=== PATIENT | female | born 1965 | race Caucasian/White ===

== ENCOUNTER 2018-06-10 09:48 | Day surgery (SDC) | payer OTHER ==
[2018-06-07 17:46] VITALS: Ht 152.4 cm; Wt 68.2 kg
[~2018-06-10] VITALS: Ht 152.4 cm; Wt 68.2 kg
[2018-06-10] VITALS (15 sets, daily range): BP systolic 108–125; BP diastolic 52–75; PULSE 76–98; RESP 14–22
[~2018-06-10 09:48] MED LIST: CEFAZOLIN 2 GM/50 ML (PMX) 50 ML IVPB SCH; LIDOCAINE 2% (SDV) 5 ML INJ ONE; SOD CHLORIDE 0.9% 1,000 ML IV SCH
--- NOTE | 2018-06-10 11:09 | PREAC ---
Date/Time of Note Date/Time of Note DATE: 06/10/18 TIME: 11:08 Anesthesia Eval and Record Evaluation Time Pre-Procedure Interview DATE: 06/10/18 TIME: 11:08 Age 52 Sex female NPO: 8 hrs Preoperative diagnosis cholelithiasis Planned procedure laparoscopic cholecystectomy Past Medical History Past Medical History: None Surgery & Anesthesia Issues No known issue Meds Anticoagulation: No Beta Walter within 24 hr: No Reason Beta Walter not given: Pt. not on B-Walter No Active Prescriptions or Reported Meds Current Medications Cefazolin Sodium/ Dextrose 50 ml @ 100 mls/hr PRE-OP IVPB ; Start 06/10/18 at 06:00 Sodium Chloride 1,000 ml @ 75 mls/hr [id number] IV ; Start 06/10/18 at 06:00; Stop 06/10/18 at 18:00 Meds reviewed: Yes Allergies Coded Allergies: No Known Drug Allergy (Verified Allergy, Unknown, 06/07/18) Allergies Reviewed: Yes Labs/Studies Labs Reviewed: Reviewed by anesthesiologist test: Negative Studies: ECG Pre-procedure Exam Last vitals Vital Signs Date Temp Pulse Resp B/P (MAP) Pulse Ox O2 O2 Flow FiO2 Time Delivery Rate 06/10/18 97.9 77 16 112/56 98 Room Air 11:00 (74) Airway: Adequate mouth opening, Adequate thyromental dist Mallampati: Mallampati I Teeth: Normal Lung: Normal Heart: Normal ASA Physical Status ASA physical status: 2 Emergency: None Planned Anesthetic General/MAC: ETT Planned Pain Management Parenteral pain med Pre-operative Attestations Prior to commencing anesthesia and surgery, the patient was re-evaluated, there was verification of: *The patient's identity *The results of appropriate recent lab work and preoperative vital signs *The above evaluation not changing prior to induction *Anesthetic plan, risk benefits, alternative and complications discussed with patient/family; questions answered; patient/family understands, accepts and wishes to proceed. FERNANDEZ ARCHIBALD Jun 10, 2018 11:09
[2018-06-10] MEDS ORDERED: PROPOFOL 20 ML ONE (11:28)
[2018-06-10] MEDS ORDERED: FENTAnyl 50 MCG/ML VIAL ONE (11:30)
[2018-06-10] MEDS ORDERED: CEFAZOLIN 1 GM INJ ONE (11:36)
[2018-06-10] MEDS ORDERED: DEXAMETHASONE 4 MG/ML 5 ML INJ ONE (11:36)
[2018-06-10] MEDS ORDERED: ONDANSETRON 4 MG INJ ONE (11:37)
[2018-06-10] MEDS ORDERED: BUPIVACAINE 0.25% (MPF) 30 ML INJ ONE (11:41)
[2018-06-10] MEDS ORDERED: EPHEDrine 50 MG INJ ONE (11:54)
[2018-06-10] MEDS ORDERED: ATROPINE 1 MG/10 ML SYRINGE ONE (11:54)
[2018-06-10] MEDS ORDERED: LABETALOL HCL 20MG INJ ONE (11:57)
[2018-06-10] MEDS ORDERED: SUGAMMADEX SODIUM 200 MG/2 ML VIAL IV ONE (11:59)
--- NOTE | 2018-06-10 12:03 | OPR ---
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 She requests surgical excision of her gallbladder. Risks alternatives benefits and percent were discussed the patient. Patient expresses understanding consents to the operation. Procedure Description Patient is taken to the OR and prepped and draped in usual sterile fashion. Surgical time was performed. IV antibiotics were given. Infraumbilical incision was made with a 15 blade transversely. Dissection with cautery was carried onto the fascia. The fascia was grasped with Arnold's and divided with curved Garcia scissors. 0 Vicryl U stitch was placed into the fascia. Garcia trocar was introduced. Pneumoperitoneum is established. Midepigastric 12 mm optical trochars were placed under direct position. Right upper quadrant upper flank 5 mm optical trochars were placed under direct position. Upon initial inspection there is some adhesions to the gallbladder which are taken down bluntly with [place] graspers. The gallbladder was grasped with the fundus and retracted in a lateral cephalad direction. [place] graspers were used to dissect out the cystic duct and cystic artery. The critical view is established. The cystic duct is divided 3 clips proximally clipped distal and the division was performed with laparoscopic scissors. Cystic artery was divided to close proximally clipped distal and the division was performed laparoscopic scissors. The gallbladder was taken of the gallbladder bed. Good hemostasis established in the surgical bed. The gallbladder is retrieved using Endo Catch bag. Ports removed under direct visualization. Infraumbilical 0 Vicryl U stitch was tied down. Skin is closed using skin emilee. Therapeutic contains local anesthesia was injected at the incision site. Dry dressings were applied. Milagro GAR Jun 10, 2018 12:03
--- NOTE | 2018-06-10 12:09 | PAC ---
Date/Time of Note Date/Time of Note DATE: 06/10/18 TIME: 12:09 Post-Anesthesia Notes Post-Anesthesia Note Last documented vital signs Vital Signs Date Temp Pulse Resp B/P (MAP) Pulse Ox O2 O2 Flow FiO2 Time Delivery Rate 06/10/18 97.9 89 131/78 99 12:08 06/10/18 77 16 112/56 98 Room Air 11:00 (74) Activity: WNL Respiratory function: WNL Cardiovascular function: WNL Mental status: Baseline Pain reasonably controlled: Yes Hydration appropriate: Yes Nausea/Vomiting absent: Yes FERNANDEZ ARCHIBALD Jun 10, 2018 12:09
[2018-06-10] MEDS ORDERED: HYDROmorphONE 1 MG/5 ML IV SYRINGE IV ONE (12:11)
[2018-06-10] MEDS: FENTAnyl 50 MCG/ML VIAL IV PRN ×2 (12:25→12:32)
[2018-06-10] MEDS ORDERED: ALBUTEROL 0.083% (NEB) 2.5 MG/3 ML AMP HHN PRN (12:30)
[2018-06-10] MEDS ORDERED: hydrALAzine 20 MG INJ IV PRN (12:30)
[2018-06-10] MEDS ORDERED: HYDROmorphONE 1 MG/5 ML IV SYRINGE IV PRN ×3 (12:30)
[2018-06-10] MEDS ORDERED: LABETALOL HCL 20MG INJ IV PRN (12:30)
[2018-06-10] MEDS ORDERED: FENTAnyl 50 MCG/ML VIAL IV PRN ×2 (12:30)
[2018-06-10] MEDS ORDERED: METOCLOPRAMIDE 10 MG INJ IV PRN (12:30)
[2018-06-10] MEDS ORDERED: ONDANSETRON 4 MG INJ IV PRN (12:30)
[2018-06-10] MEDS ORDERED: OXYCODONE/ACETAMINOPHEN (5/325) TAB PO PRN ×2 (12:30)
[2018-06-10] MEDS ORDERED: MIDAZOLAM 1 MG/ML 2 ML INJ IV PRN (12:30)
[2018-06-10] MEDS ORDERED: DIPHENHYDRAMINE 50 MG INJ IV PRN (12:30)
[2018-06-10] MEDS ORDERED: MEPERIDINE 25 MG INJ IV PRN (12:30)
[2018-06-10] MEDS ORDERED: HYDROCODONE/APAP (5/325) TAB PO ONE (12:30)
[2018-06-10] MEDS ORDERED: EPHEDrine SULFATE 50 MG/5 ML SYG IV PRN (12:30)
--- NOTE | 2018-06-10 18:33 | RADRPT ---
Vent Rate: 71 bpm RR Interval: 0 msec ID Interval: 154 msec QRS Duration: 78 msec QT Interval: 406 msec QTC Interval: 441 msec P-R-T [place]: 46 - 51 - 47 degrees Normal sinus rhythm Normal ECG Electronically Signed By: Dillan Seay
== END 2018-06-10 14:38 | disposition home or self-care (01) ==
LOC: SDS 09:48
PROVIDERS: ATTEND Surgery
DX: K80.10 Calculus of gallbladder with chronic cholecystitis without obstruction (principal)
CPT/HCPCS: 47562; 88304; 93005; J0461; J0690; J1100; J1170; J2405; J2765; J3010